=== PATIENT | female | born 1970 | race Caucasian/White ===

== ENCOUNTER 2022-04-14 17:08 | Emergency (ER) | payer OTHER, SELFPAY ==
--- NOTE | ~2022-04-14 | XR_ITS ---
EXAM: XR ankle LT min 3V DATE: 04/14/2022 17:41 HISTORY: INVERSION INJURY,ANT PAIN . COMPARISON: None available. FINDINGS: Normal mineralization. No fracture or dislocation. No lytic or blastic lesion. Joint space s are maintained. Subchondral cyst formation in the medial talus. Plantar enthesopathy. No erosion or periosteal change. Soft tissues within normal limits. IMPRESSION: No acute osseous finding in the left ankle. Reviewed, dictated and finalized at location K.
--- NOTE | 2022-04-14 17:14 | ED.LOWEXIN ---
HPI - Extremity Injury (Lower) General Chief Complaint: Extremity Injury, Lower Stated Complaint: Left ankle injury Time Seen by Provider: 04/14/22 17:14 Source: patient and RN notes reviewed History of Present Illness HPI Narrative: Patient is a 52-year-old female who presents the urgent care with complaints of left ankle pain. Patient states that yesterday she was walking on her gravel driveway and rolled her ankle. Patient states at the time she did not have a lot of pain or swelling. States that its gradually started hurting worse and she has been taking ibuprofen and using a wrap. No other acute complaints or injuries. No acute distress noted. Patient aware of the plan of care. Some parts of this dictation were generated by voice recognition software and may contain typographical and/or grammatical inaccuracies. Related Data Home Medications Medication Instructions Recorded Confirmed Equate Allergy 04/14/22 atorvastatin 20 mg tablet 20 tablet PO DAILY 04/14/22 04/14/22 carvedilol 25 mg tablet 25 tablet PO BID 04/14/22 04/14/22 cholecalciferol (vitamin D3) 25 1 tablet PO DAILY 04/14/22 04/14/22 mcg (1,000 unit) tablet famotidine 20 mg tablet 20 tablet PO BID 04/14/22 04/14/22 lisinopril 20 mg tablet 20 tablet PO DAILY 04/14/22 04/14/22 spironolactone 25 mg tablet 25 tablet PO DAILY 04/14/22 04/14/22 Allergies Allergy/AdvReac Type Severity Reaction Status Date / Time No Known Allergies Allergy Verified 04/14/22 17:39 Review of Systems Review of Systems: CONSTITUTIONAL: Denies fever, chills, or sweats. EYES: Denies visual changes, redness, or discharge. ENT: Denies rhinorrhea, congestion, sore throat, or otalgia. CARDIOVASCULAR: Denies chest pain, palpitations, or edema. RESPIRATORY: Denies cough or dyspnea. GASTROINTESTINAL: Denies abdominal pain, nausea, vomiting, or diarrhea. GENITOURINARY: Denies dysuria or hematuria. SKIN: Denies rash or itching. MUSCULOSKELETAL: Reports of left ankle pain NEUROLOGIC: Denies headache, numbness, or weakness. All other systems reviewed are negative, except as documented in HPI. [facility] Comments At the time of my signature, I reviewed and agree with the nursing past medical, surgical, social, and family history. There is no relevant family history pertinent to the patient complaint. Exam Narrative: GENERAL: This is a well-nourished, well-developed patient, in no apparent distress. HEAD: normocephalic, atraumatic. EYES: PERRL. Sclera clear/white. Vision is grossly intact. EARS: External ears normal NOSE: External nose normal with no obvious nasal discharge, nares without redness, no rhinorrhea. THROAT: Mucous membranes moist NECK: Neck supple CARDIOVASCULAR: Regular rate and rhythm without murmurs, gallops, or rubs. RESPIRATORY: Clear to auscultation. Breath sounds equal bilaterally. No wheezes, rales, or rhonchi. SKIN: warm, intact with no suspicious lesions or rash, good texture and turgor. NEURO: awake, alert, and oriented to person, place and time. There were no obvious focal neurologic abnormalities. EXTREMITIES: Very mild edema noted to the left lateral malleolus with mild tenderness radiating to the dorsal aspect of the left foot/ankle. No obvious deformity or fracture. No ecchymosis or erythema. Range of motion to left upper extremity within normal limits with exacerbated pain on weightbearing and flexion. Course Course Level of Care: Express Care Visit Vital Signs Vital signs: Vital Signs Temperature 98 F 04/14/22 17:25 Pulse Rate 66 04/14/22 17:25 Respiratory Rate 16 04/14/22 17:25 Blood Pressure 117/66 04/14/22 17:25 Pulse Oximetry 100 04/14/22 17:25 Oxygen Delivery Room Air 04/14/22 17:25 Temperature 98 F 04/14/22 17:25 Pulse Rate 66 04/14/22 17:25 Respiratory Rate 16 04/14/22 17:25 Blood Pressure 117/66 04/14/22 17:25 Pulse Oximetry 100 04/14/22 17:25 Oxygen Delivery Room Air 04/14/22 17:25 Reviewed
[2022-04-14 17:25] VITALS: BP 117/66; PULSE 66; RESP 16; TEMP 36.6; O2SAT 100
== END 2022-04-14 18:10 | disposition home or self-care (01) ==
PROVIDERS: Emergency Provider Nurse Practitioner Family; PCP Internal Medicine
DX: S93.402A Sprain of unspecified ligament of left ankle, initial encounter (principal); X50.9XXA Other and unspecified overexertion or strenuous movements or postures, initial encounter; I50.9 Heart failure, unspecified; K21.9 Gastro-esophageal reflux disease without esophagitis
CPT/HCPCS: 73610; 99213; G0463

== ENCOUNTER 2023-02-11 16:53 | Emergency (ER) | payer OTHER, SELFPAY ==
[2023-02-11 17:00] VITALS: BP 133/67; PULSE 68; RESP 16; TEMP 36.2; O2SAT 98
--- NOTE | 2023-02-11 17:48 | ED.HA ---
HPI - Headache General Chief Complaint: Headache Stated Complaint: Headache Time Seen by Provider: 02/11/23 17:48 Source: patient, RN notes reviewed and old records reviewed Mode of arrival: ambulatory Limitations: no limitations History of Present Illness HPI Narrative: 52 year old female ambulatory presents to [place] [facility] care with complaints of migraine headache which started this morning, She reports that she has headache pain to bothe of her temporal regions, has been nauseated without emesis and is photosensitive.Pateint reports no feelings of weakness or any dizziness. Patient reports history of migraines, has taken Tylenol without relief in symptoms. MD elicited complaint: migraine Pertinent past history: migraines Onset (ago): hour(s) (this morning) Pain scale (0-10): 6 Treatments prior to arrival: acetaminophen Related Data Home Medications Medication Instructions Recorded Confirmed carvedilol 25 mg tablet 25 tablet PO BID 04/14/22 02/11/23 lisinopril 20 mg tablet 20 tablet PO DAILY 04/14/22 02/11/23 spironolactone 25 mg tablet 25 tablet PO DAILY 04/14/22 02/11/23 loratadine 10 mg tablet (Claritin) 10 mg PO DAILY 02/11/23 02/11/23 omeprazole 20 mg tablet,delayed 20 mg PO DAILY 02/11/23 02/11/23 release Allergies Allergy/AdvReac Type Severity Reaction Status Date / Time No Known Allergies Allergy Verified 02/11/23 17:13 Review of Systems Review of Systems: CONSTITUTIONAL: Denies fever, chills, or sweats. EYES: Denies visual changes, redness, or discharge.reports photosensitivity ENT: Denies rhinorrhea, congestion, sore throat, or otalgia. CARDIOVASCULAR: Denies chest pain, palpitations, or edema. RESPIRATORY: Denies cough or dyspnea. GASTROINTESTINAL: Denies abdominal pain, positive for nausea without emesis, denies any diarrhea GENITOURINARY: Denies dysuria or hematuria. SKIN: Denies rash or itching. MUSCULOSKELETAL: Denies back pain, joint pain, or myalgia. NEUROLOGIC: Reports bilateral temporal headache,no numbness, or weakness.dizziness any dizziness PSYCHIATRIC: Denies anxiety or depression. All systems reviewed & are unremarkable except as noted in HPI and below PMFSH Past Medical History Medical History (Updated 02/14/23 @ 22:44 by Naz Stone NP) CHF (congestive heart failure), NYHA class I Environmental allergies GERD (gastroesophageal reflux disease) Hypertension Migraine Surgical History Surgical History (Updated 02/14/23 @ 22:42 by Naz Stone NP) History of partial hysterectomy Social History Social History (Updated 02/14/23 @ 22:45 by Naz Stone NP) Smoking status: Former smoker Additional smoking assessment comments: Quit 2017 Gender identity (if verbalized by the patient): Female Comments At time of signature, agree with nursing past medical, surgical, social and family history. There is no relevant family history pertinent to the presenting complaint Exam Narrative: GENERAL: Well-appearing, well-nourished, and in no acute distress. HEAD: Normocephalic, atraumatic. EYES: PERRLA and EOMI.no nystagmus, photosensitivity ENT: Nares clear, no rhinorrhea or epistaxis. Mucous membranes moist.TM's normal throat pink with no lesions or swelling NECK: Supple.no lymphadenopathy CHEST: Clear to auscultation. No respiratory distress.SAO2 98% on room air HEART: Regular rate and rhythm. No murmur heard. Normal peripheral pulses. ABDOMEN: Soft, nontender, nondistended, normal active bowel sounds. EXTREMITIES: Normal range of motion. No edema. SKIN: Warm, dry, no rash. NEURO: No focal deficits. Alert and oriented x3.temporal headache reported as migraine Course Course Emergency Course: Patient is aware of diagnosis, understands and agrees to treatment plan.? Anticipatory guidance given.? Patient agrees to follow-up as directed and is aware of reasons to seek care at the emergency department. Portions of this record may have been created with voice recogniti
[2023-02-11] MEDS: KETOROLAC (*BKC) 60 MG/2 ML VIAL IM (18:04)
== END 2023-02-11 18:28 | disposition home or self-care (01) ==
PROVIDERS: Emergency Provider Registered Nurse; PCP Internal Medicine
DX: G43.909 Migraine, unspecified, not intractable, without status migrainosus (principal); I11.0 Hypertensive heart disease with heart failure; I50.9 Heart failure, unspecified; Z87.891 Personal history of nicotine dependence
CPT/HCPCS: 96372; 99213; G0463; J1885

== ENCOUNTER 2024-05-20 12:54 | Emergency (ER) | payer OTHER, SELFPAY ==
[2024-05-20 13:03] VITALS: BP 120/63; PULSE 81; RESP 16; TEMP 36.1; O2SAT 97
--- NOTE | 2024-05-20 13:12 | ED.GENADULT ---
HPI - General Adult General Chief complaint: Upper Respiratory Infection Stated complaint: Poss pink eye/throat Time Seen by Provider: 05/20/24 13:12 Source: patient, RN notes reviewed and old records reviewed Mode of arrival: ambulatory Limitations: no limitations History of Present Illness HPI narrative: patient presents with complaints of runny nose, sore throat, cough x4 days. She denies any fever, chills, sweats. She reports most significant symptom is sore throat. She reports seasonal allergies, takes Claritin and Flonase daily. Reports that she believes most of her symptoms today are attributable to allergies. The 1 new symptom that she does not attribute allergies is right eye redness and itching. She will begin this morning with right eye stuck shut. She denies any injury or trauma. She denies any loss of visual acuity. She does report purulent drainage and a.m. matting Related Data Home Medications Medication Instructions Recorded Confirmed carvedilol 25 mg tablet 25 tablet PO BID 04/14/22 05/20/24 lisinopril 20 mg tablet 20 tablet PO DAILY 04/14/22 05/20/24 spironolactone 25 mg tablet 25 tablet PO DAILY 04/14/22 05/20/24 loratadine 10 mg tablet (Claritin) 10 mg PO DAILY 02/11/23 05/20/24 omeprazole 20 mg tablet,delayed 20 mg PO DAILY 02/11/23 05/20/24 release ergocalciferol (vitamin D2) 1,250 1 mcg PO WEEKLY 05/20/24 05/20/24 mcg (50,000 unit) capsule ferrous sulfate 325 mg (65 mg 325 mg PO DAILY 05/20/24 05/20/24 iron) tablet (FeroSul) Allergies Allergy/AdvReac Type Severity Reaction Status Date / Time No Known Allergies Allergy Verified 05/20/24 13:02 Review of Systems Review of Systems: All systems reviewed & are unremarkable except as noted in HPI and below Constitutional: Constitutional: Reports no additional constitutional complaints Eyes: Eyes: Reports eye discharge, Reports irritation, Reports itchy eyes, Denies loss of vision, Denies other visual disturbances, Denies eye pain and Denies requires corrective lenses ENT: Reports system reviewed and no additional complaints, except as documented and Reports as per HPI Cardiovascular: Cardiovascular: Reports no additional cardiovascular complaints Respiratory: Respiratory: Reports as per HPI and Reports no additional respiratory complaints Gastrointestinal: Gastrointestinal: Reports no additional gastrointestinal complaints [facility] Past Medical History Medical History CHF (congestive heart failure), NYHA class I Environmental allergies GERD (gastroesophageal reflux disease) Hypertension Migraine Surgical History Surgical History History of partial hysterectomy Social History Social History Smoking status: Former smoker Additional smoking assessment comments: Quit 2017 Gender identity (if verbalized by the patient): Female Comments At the time of my signature, I reviewed and agree with the nursing past medical, surgical, social, and family history. There is no relevant family history pertinent to the patient complaint. Exam Const: General: cooperative, no acute distress, alert and awake Orientation/consciousness: oriented to person, oriented to place and oriented to time HENMT: Head: normal to inspection Ears: TM's normal bilaterally Face/Nose/Sinus: Nasal discharge present clear Throat: postnasal drainage Eyes: Conjunctivae: conjunctival abnormality (injected) right and diffuse Sclera: scleral abnormality right scleral exudate and scleral injection; without foreign bodies and without hemorrhages Pupils: Equal, round and reactive pupils present EOM: EOMs intact bilaterally Resp: Effort & Inspection: normal respiratory effort and able to speak in complete sentences Auscultation: clear to auscultation bilaterally, no crackles, no rales, no rhonchi an
== END 2024-05-20 13:35 | disposition home or self-care (01) ==
PROVIDERS: Emergency Provider Nurse Practitioner Family
DX: H10.31 Unspecified acute conjunctivitis, right eye (principal); J30.2 Other seasonal allergic rhinitis; Z87.891 Personal history of nicotine dependence; I11.0 Hypertensive heart disease with heart failure; I50.9 Heart failure, unspecified; K21.9 Gastro-esophageal reflux disease without esophagitis; Z90.711 Acquired absence of uterus with remaining cervical stump
CPT/HCPCS: 87880; 99213; G0463